=== PATIENT | male | born 1985 | race Hispanic/Latino ===

== ENCOUNTER 2024-04-17 12:00 | Emergency (ER) | payer SELFPAY ==
[~2024-04-17 12:00] MED LIST: Iopamidol 300 61% 100 ML VIAL FS ONE
[2024-04-17] MEDS ORDERED: Morphine 4 MG/ML VIAL ONE (12:53)
[2024-04-17] MEDS ORDERED: Ondansetron PF 4 MG/2 ML Vial ONE (12:54)
[2024-04-17 13:41] LABS: #Basophils 0.02 10x3/uL (0.0-0.2); #Monocytes 0.22 10x3/uL (0.0-1.1); %Basophils 0.2 % (0.0-2.0); %Lymphocytes 9.2 % (18.0-47.0); %Monocytes 2.4 % (0.0-10.0); %Neutrophils 87.8 % (40.0-75.0); Hematocrit 46.5 % (38.8-50.0); Hemoglobin 16.4 g/dL (13.5-17.5); Mean Corpuscular HGB CONC 35.3 g/dL (32.0-36.0); Mean Corpuscular Hemoglobin 30.7 pg (27.0-33.0); Mean Corpuscular Volume 86.9 fL (81.2-95.1); Mean Platelet Volume 11.2 fL (7.4-10.4); Platelet Count 235 10x3/uL (150-450); RBC Distribution Width 12.5 % (11.5-14.5); Red Blood Cell (RBC) Count 5.35 10x6/uL (4.32-5.72)
[2024-04-17 13:49] LABS: ALT (SGPT) 139 U/L (8-55); AST (SGOT) 80 U/L (5-34); Alkaline Phosphatase 69 U/L (40-110); Anion Gap 19 mmol/L (10-20); BUN (Urea Nitrogen) 14 mg/dL (8.9-20.6); Bilirubin, Total 0.6 mg/dL (0.2-1.2); Calc. Creatinine Clearance 0 mL/min (70-130); Calcium 9.1 mg/dL (7.8-10.44); Carbon Dioxide 19 mmol/L (22-29); Chloride 99 mmol/L (98-107); Estimated GFR 113; Globulin 3.6 g/dL (2.4-3.5); Glucose 325 mg/dL (70-105); Lipase 9 U/L (8-78); Potassium 4.2 mmol/L (3.5-5.1); Protein, Total 7.6 g/dL (6.0-8.3); Sodium 133 mmol/L (136-145)
[2024-04-17] MEDS ORDERED: Metoclopramide HCl 10 MG (2 mL) VIAL ONE (14:27)
[2024-04-17] MEDS ORDERED: Famotidine/PF 20 mg/2ml Vial ONE (14:27)
== END 2024-04-17 15:25 | disposition home or self-care (01) ==
LOC: CSHERS 12:00
DX: R10.13 Epigastric pain (principal); R11.2 Nausea with vomiting, unspecified; E11.9 Type 2 diabetes mellitus without complications; I10 Essential (primary) hypertension; Z87.891 Personal history of nicotine dependence
CPT/HCPCS: 36415; 36416; 74177; 80053; 83690; 85025; 96374; 96375; J2272; J2405; J2765; J3490; Q9967